=== PATIENT | female | born 1985 | race Caucasian/White ===

== ENCOUNTER 2017-02-16 11:48 | Emergency (ER) | payer SELFPAY ==
[2017-02-16] MEDS ORDERED: OXYCODONE-ACETAMINOPHEN 5-325 MG TABLET PO ONE (12:59)
--- NOTE | 2017-02-16 13:05 | ER Document Report ---
HPI - HPI Patient complains to provider of: ankle pain Onset: Just prior to arrival Onset/Duration: Sudden Quality of pain: Achy Severity: Moderate Pain Level: 3 Context: Patient presents emergency department with complaints of right ankle pain. Patient reports she fell off the porch and twisted her ankle. She denies past medical history of injuring his ankle. Patient reports she took Motrin prior to arrival. Reports it hurts to walk. Associated Symptoms: None Exacerbated by: Movement, Walking Relieved by: Denies Similar symptoms previously: No Recently seen / treated by doctor: No - REPRODUCTIVE LMP: 01/31/17 Reproductive: DENIES: : - DERM Skin Color: Normal Past Medical History - General Information source: Patient Last Menstrual Period: 01/31/17 - Social History Smoking Status: Unknown if Ever Smoked Cigarette use (# per day): No Frequency of alcohol use: None Drug Abuse: None Lives with: Family Family History: Reviewed & Not Pertinent Patient has suicidal ideation: No Patient has homicidal ideation: No Renal/ Medical History: Denies: Hx Peritoneal Dialysis Malignancy Medical History: Reports: Hx Cervical Cancer - treated with radiation and chem. remission over 5 years now. Psychiatric Medical History: Reports: Hx Anxiety Past Surgical History: Reports: Hx Cholecystectomy, Hx Gynecologic Surgery - LEEP x3; tubal, Hx Tubal Ligation - Immunizations Hx Diphtheria, Pertussis, Tetanus Vaccination: Yes Vertical Provider Document - CONSTITUTIONAL Agree With Documented VS: Yes Exam Limitations: No Limitations General Appearance: WD/WN, Mild Distress - winces when ankle palpated - INFECTION CONTROL TRAVEL OUTSIDE OF THE [place] IN LAST 30 DAYS: No - HEENT HEENT: Atraumatic, Normocephalic - NECK Neck: Normal Inspection, Supple - RESPIRATORY Respiratory: No Respiratory Distress O2 Sat by Pulse Oximetry: 96 - MUSCULOSKELETAL/EXTREMETIES Musculoskeletal/Extremeties: Tender - right ankle and foot dorsally, medially, lateral ttp, swelling, good pedal pulse, brisk cap refill - NEURO Level of Consciousness: Awake, Alert, Appropriate Motor/Sensory: No Motor Deficit - DERM Integumentary: Warm, Dry Adult Front & Back Diagram: 1 - ttp, swelling, good pedal pulse, brisk cap refill, no erythema/warmth/ ecchymosis Course - Re-evaluation Re-evalutation: 02/16/17 Positive distal fib fx. Patient instructed on fracture. Patient instructed on the importance of follow-up with orthopedics. Placed in a splint was provided with pain medication. She verbalized understanding to all instructions. - Vital Signs Vital signs: Temp Pulse Resp BP Pulse Ox 97.8 F 76 18 118/86 H 96 02/16/17 11:57 02/16/17 11:57 02/16/17 11:57 02/16/17 11:57 02/16/17 11:57 - Diagnostic Test Radiology reviewed: Image reviewed, Reports reviewed - distal fib fx Procedures - Immobilization Right Ankle Immobilizer type: Posterior ankle Performed by: GALO wilkinson Post-Proc Neuro Vasc Exam: Unchanged from pre-exam Discharge - Discharge Clinical Impression: Fall, Fracture of distal end of right fibula Condition: Good Disposition: HOME, SELF-CARE Instructions: Ice & Elevation ([facility]), Oral Narcotic Medication ([facility]), Use of Crutches ([facility]), Splint Pending Casting ([facility]) Additional Instructions: *You have been evaluated for fractured fibula *Maintain the splint, use the crutches, no weight bearing *Rest/Ice/Elevate *Follow up with orthopedics within 3 days-call for an appointment *Take medication as prescribed for pain *Return to ED for worsening condition, changes, needs Prescriptions: Oxycodone HCl/Acetaminophen [Percocet 5-325 mg Tablet] 1 - 2 tab PO ASDIR PRN # 20 tablet PRN Reason: Referrals: ESTUARDO PEREZ MD [ACTIVE STAFF] - Follow up as needed [facility] [Provider Group] - Follow up in 3-5 days
[2017-02-16 13:51] VITALS: BP 110/85
== END 2017-02-16 13:51 | disposition home or self-care (01) ==
LOC: ER 11:48
PROC: 2W3SX1Z Immobilization of Right Foot using Splint (ICD-10-PCS; principal; 2017-02-16)
DX: S82.831A Other fracture of upper and lower end of right fibula, initial encounter for closed fracture (principal); M25.571 Pain in right ankle and joints of right foot; W17.89XA Other fall from one level to another, initial encounter
CPT/HCPCS: 99283